=== PATIENT | female | born 1990 | race Caucasian/White ===

== ENCOUNTER 2018-03-11 08:13 | Day surgery (SDC) | payer BC ==
[2018-03-05 15:15] VITALS: BMI 30.9
[2018-03-11] MEDS ORDERED: Propofol 10 mg/ml Inj (20 ML) ONE (09:20)
[2018-03-11] MEDS ORDERED: Simethicone 40 mg/0.6 ml Liquid (30 ml) ONE (09:27)
[2018-03-11] MEDS ORDERED: Sodium Chloride 0.9% 1,000 ML IV SCH (10:15)
[2018-03-11 10:18] VITALS: RESP 12; TEMP 98.4
[2018-03-11 11:06] VITALS: BP 115/73; PULSE 72; O2SAT 99
== END 2018-03-11 11:23 | disposition home or self-care (01) ==
LOC: ENDO 08:13
PROVIDERS: ATTEND Internal Medicine
DX: K22.6 Gastro-esophageal laceration-hemorrhage syndrome (principal); K29.70 Gastritis, unspecified, without bleeding; K64.8 Other hemorrhoids; R10.9 Unspecified abdominal pain; R19.4 Change in bowel habit; K31.89 Other diseases of stomach and duodenum; M19.90 Unspecified osteoarthritis, unspecified site; M41.9 Scoliosis, unspecified
CPT/HCPCS: 43239; 45380; 84703; 88305; 88342; J2001; J2704; J3010; J7040